=== PATIENT | female | born 1980 | race Caucasian/White ===

== ENCOUNTER → 2017-04-22 | Outpatient (CLI) | payer MEDICAID ==
--- NOTE | 2017-04-22 11:07 | RADIOLOGY REPORT (SQ) ---
EXAM DESCRIPTION: CHEST PA/LATERAL COMPLETED DATE/TIME: 04/22/2017 10:45 am REASON FOR STUDY: WHEEZING COMPARISON: None. EXAM PARAMETERS: NUMBER OF VIEWS: two views TECHNIQUE: Digital Frontal and Lateral radiographic views of the chest acquired. RADIATION DOSE: NA LIMITATIONS: none FINDINGS: LUNGS AND PLEURA: No opacities, masses or pneumothorax. No pleural effusion. MEDIASTINUM AND HILAR STRUCTURES: No masses or contour abnormalities. HEART AND VASCULAR STRUCTURES: Heart normal size. No evidence for failure. BONES: No acute findings. HARDWARE: None in the chest. OTHER: No other significant finding. IMPRESSION: NO SIGNIFICANT RADIOGRAPHIC FINDING IN THE CHEST. TECHNICAL DOCUMENTATION: JOB ID: [id number] [employer]- All Rights Reserved
== END ==
LOC: OD 10:17
PROVIDERS: ATTEND Physician Assistant
DX: R06.2 Wheezing (principal)
CPT/HCPCS: 71020

== ENCOUNTER → 2018-01-20 | Outpatient (CLI) | payer MEDICAID ==
--- NOTE | 2018-01-20 12:20 | RADIOLOGY REPORT (SQ) ---
EXAM DESCRIPTION: C SP 4 OR 5 VIEWS COMPLETED DATE/TIME: 01/20/2018 11:31 am REASON FOR STUDY: CERVICALGIA M54.2 CERVICALGIA COMPARISON: None. NUMBER OF VIEWS: Five views. TECHNIQUE: AP, lateral, obliques and odontoid radiographic images acquired of the cervical spine. LIMITATIONS: None. FINDINGS: MINERALIZATION: Normal. ALIGNMENT: Anatomic. VERTEBRAE: Vertebral bodies of normal height. DISCS: No significant osteophytes or sclerosis. Disc height maintained. FORAMINA: No osteophytes or foraminal narrowing. LATERAL AND POSTERIOR ELEMENTS: Facets, lateral masses and spinous processes without significant find ings. HARDWARE: None in the spine. SOFT TISSUES: No masses or calcifications. Lung apices clear. OTHER: No other significant finding. IMPRESSION: NO SIGNIFICANT RADIOGRAPHIC FINDING IN THE CERVICAL SPINE. TECHNICAL DOCUMENTATION: JOB ID: [id number] [employer]- All Rights Reserved Reading location - IP/workstation name: [email or web address]
== END ==
LOC: OD 11:15
PROVIDERS: ATTEND Nurse Practitioner Family
DX: M54.2 Cervicalgia (principal)
CPT/HCPCS: 72050

== ENCOUNTER → 2019-07-17 | Outpatient (CLI) | payer MEDICAID ==
[2019-07-17 17:32] LABS: A TYPE INFLUENZA AG NEGATIVE (NEGATIVE); B INFLUENZA AG NEGATIVE (NEGATIVE)
== END ==
LOC: OD 16:42
PROVIDERS: ATTEND Nurse Practitioner Acute Care
DX: R68.89 Other general symptoms and signs (principal)
CPT/HCPCS: 87804